=== PATIENT | male | born 2000 ===

== ENCOUNTER 2021-11-07 05:48 | Emergency (ER) | payer SELFPAY | END 2021-11-07 05:55 | disposition left against medical advice (07) | LOC: ED 05:48 | DX: S90.852A Superficial foreign body, left foot, initial encounter (principal); Z53.21 Procedure and treatment not carried out due to patient leaving prior to being seen by health care provider; X58.XXXA Exposure to other specified factors, initial encounter; Y93.89 Activity, other specified; Y92.89 Other specified places as the place of occurrence of the external cause; Y99.8 Other external cause status ==